=== PATIENT | male | born 1990 ===

== ENCOUNTER 2017-07-02 17:31 | Emergency (ER) | payer OTHER ==
[2017-07-02 17:40] VITALS: BP 143/68; PULSE 69; RESP 16; TEMP 98.6; O2SAT 100
--- NOTE | 2017-07-02 19:01 | ED PDOC ---
HPI: Abdomen Time Seen by Provider: 07/02/17 18:10 Chief Complaint (Nursing): Shortness Of Breath Chief Complaint (Provider): abdominal pain/sob History Per: Patient, Family (26 y/o male here for evaluation of intermittent abdominal pain associated with heavy meals,pork, alcohol x weeks. States he ate pork this week with exacerbation of symptoms and reoccurring abdominal pain with eating any meals. Patient states he vomited today after eating today and felt sob at that time. Currently does not feel nauseaous/abdominal pain or sob. Has h/o appendectomy.) Past Medical History Reviewed: Historical Data, Nursing Documentation, Vital Signs Vital Signs: Last Vital Signs Temp 98.6 F 07/02/17 17:34 Pulse 69 07/02/17 17:34 Resp 16 07/02/17 18:33 BP 143/68 07/02/17 17:34 Pulse Ox 100 07/02/17 17:34 - Family History Family History: States: No Known Family Hx - Home Medications Home Medications: Ambulatory Orders Medication Instructions Recorded Omeprazole Magnesium [Prilosec Otc] 20 mg PO DAILY #7 tablet. 07/02/17 Ondansetron ODT [Zofran ODT] 4 mg PO Q8 PRN #8 odt 07/02/17 Ranitidine HCl [Zantac 75] 75 mg PO BID PRN #10 tablet 07/02/17 - Allergies Allergies/Adverse Reactions: Allergies Allergy/AdvReac Type Severity Reaction Status Date / Time No Known Allergies Allergy Verified 07/02/17 17:34 Review of Systems ROS Statement: Except As Marked, All Systems Reviewed And Found Negative Physical Exam - Reviewed Nursing Documentation Reviewed: Yes Vital Signs Reviewed: Yes - Physical Exam Appears: Positive for: Well, Non-toxic, No Acute Distress Head Exam: Positive for: ATRAUMATIC, NORMAL INSPECTION, NORMOCEPHALIC Skin: Positive for: Normal Color, Warm, DRY Eye Exam: Positive for: EOMI, Normal appearance, PERRL ENT: Positive for: Normal ENT Inspection Neck: Positive for: Normal, Painless ROM Cardiovascular/Chest: Positive for: Regular Rate, Rhythm Respiratory: Positive for: CNT, Normal Breath Sounds Gastrointestinal/Abdominal: Positive for: Normal Exam, Bowel Sounds, Soft Back: Positive for: Normal Inspection Extremity: Positive for: Normal ROM Neurologic/Psych: Positive for: Alert, Oriented - ECG O2 Sat by Pulse Oximetry: 100 - Progress ED Course And Treament: Patient is nontender with no complaints currently. Pepcid 20 mg po x 1 dose Disposition - Clinical Impression Clinical Impression: Gastritis - Patient ED Disposition Is Patient to be Admitted: No - Disposition Referrals: Durga Spaulding MD [Staff Provider] - Disposition: Routine/Home Disposition Time: 19:02 Condition: FAIR Prescriptions: Omeprazole Magnesium [Prilosec Otc] 20 mg PO DAILY #7 tablet. Ondansetron ODT [Zofran ODT] 4 mg PO Q8 PRN #8 odt PRN Reason: Nausea/Vomiting Ranitidine HCl [Zantac 75] 75 mg PO BID PRN #10 tablet PRN Reason: Pain, Moderate (4-7) Instructions: Diet for Ulcers and Gastritis (ED), Gastritis (ED) Forms: [facility] (Norwegian) Print Language: SLOVAK
== END 2017-07-02 19:23 | disposition home or self-care (01) ==
LOC: H.ER 17:31
DX: K29.70 Gastritis, unspecified, without bleeding (principal); R06.02 Shortness of breath